=== PATIENT | female | born 2000 | race Caucasian/White ===

== ENCOUNTER → 2021-03-24 | Outpatient (CLI) | payer OTHER | LOC: EMI 12:56 | DX: S83.512A Sprain of anterior cruciate ligament of left knee, initial encounter (principal) | CPT/HCPCS: 73721 ==

== ENCOUNTER 2021-05-10 23:17 | Emergency (ER) | payer OTHER ==
[2021-05-11 01:20] LABS: BUN/CREATININE RATIO 14 (0-10)
[2021-05-11 01:24] LABS: HEMOGLOBIN 15.9 gm/dl (12.3-15.3); RED BLOOD COUNT 5.46 M/UL (4.00-5.10); WHITE BLOOD COUNT 16.7 K/UL (4.5-11.0)
[2021-05-11] MEDS ORDERED: FLOMAX 0.4 MG0.4 MG PO (05:22)
[2021-05-11] MEDS ORDERED: TORADOL 10 MG T10 MG PO (05:22)
[2021-05-11] MEDS ORDERED: ONDANSETRON ODT4 MG SL (05:22)
[2021-05-11] MEDS ORDERED: HYDROCODON-ACE1 EAC4 PO (05:27)
== END 2021-05-11 05:34 | disposition home or self-care (01) ==
LOC: ER1 23:17
PROVIDERS: Physician Assistant
DX: N13.2 Hydronephrosis with renal and ureteral calculous obstruction (principal); N83.201 Unspecified ovarian cyst, right side; F17.290 Nicotine dependence, other tobacco product, uncomplicated
CPT/HCPCS: 80053; 81001; 83690; 84703; 85025; 87086; 96374; 96375; 99284; J1885; J2270; J2405; Q9967

== ENCOUNTER 2021-06-13 09:35 | Emergency (ER) | payer OTHER ==
[~2021-06-13 09:35] MED LIST: FLOMAX 0.4 MG0.4 MG PO; HYDROCODON-ACE1 EAC4 PO; ONDANSETRON ODT4 MG SL; TORADOL 10 MG T10 MG PO
[2021-06-13 10:32] LABS: HEMOGLOBIN 15.5 gm/dl (12.3-15.3); RED BLOOD COUNT 5.38 M/UL (4.00-5.10); WHITE BLOOD COUNT 18.3 K/UL (4.5-11.0)
[2021-06-13 10:53] LABS: BUN/CREATININE RATIO 12 (0-10)
[2021-06-13] MEDS ORDERED: TORADOL 10 MG T10 MG PO (14:40)
[2021-06-13] MEDS ORDERED: ZOFRAN 4 MG TAB4 MG PO (14:40)
== END 2021-06-13 19:25 | disposition home or self-care (01) ==
LOC: ER1 09:35
PROVIDERS: Physician Assistant
DX: N83.201 Unspecified ovarian cyst, right side (principal); F17.290 Nicotine dependence, other tobacco product, uncomplicated; Z87.442 Personal history of urinary calculi
CPT/HCPCS: 76830; 80053; 81001; 84703; 85025; 96374; 96375; 99284; J1885; J2270; J2405